=== PATIENT | male | born 1950 | race Caucasian/White ===

== ENCOUNTER 2017-07-09 09:01 | Day surgery (SDC) | payer MEDICARE, OTHER ==
[~2017-07-09] VITALS: Ht 182.9 cm; Wt 109.3 kg
[~2017-07-09 09:01] MED LIST: ASPI325 PO; CYCL10 PO; IBUP600 PO; IBUP800 PO; MECL12.5 PO; Percocet 5-3251 EACH PO; TAMS.4ER PO; Tylenol325 MG PO; Ultram50 MG PO
[2017-07-10 04:09] LABS: BASOPHILS ABSOLUTE AUTO 0.02 K/mm3 (0.00-0.23); BASOPHILS PERCENT AUTO 0 % (0-2); EOSINOPHILS ABSOLUTE AUTO 0.02 K/mm3 (0.00-0.68); EOSINOPHILS PERCENT AUTO 0 % (0-6); Hematocrit 33.5 % (37.0-53.0); Hemoglobin 11.3 g/dL (13.5-17.5); IMMATURE GRAN ABSOLUTE AUTO 0.05 K/mm3 (0.00-0.10); IMMATURE GRAN PERCENT AUTO 1 % (0-1); LYMPHOCYTES ABSOLUTE AUTO 1.02 K/mm3 (0.84-5.20); LYMPHOCYTES PERCENT AUTO 11 % (21-46); MONOCYTES ABSOLUTE AUTO 0.86 K/mm3 (0.16-1.47); MONOCYTES PERCENT AUTO 10 % (4-13); Mean Corpuscular HGB 30.3 pg (26.0-34.0); Mean Corpuscular HGB Conc 33.7 g/dL (31.5-36.5); Mean Corpuscular Volume 90 fL (80-100); NEUTROPHILS ABSOLUTE AUTO 7.09 K/mm3 (1.96-9.15); NEUTROPHILS PERCENT AUTO 78 % (41-73); Platelet Count 147 K/mm3 (150-400); RDW Coefficient Variation 13.2 % (11.7-14.2); RDW Standard Deviation 43.3 fL (35.1-46.3); Red Blood Cell Count 3.73 M/mm3 (4.30-5.90); White Blood Cell Count 9.06 K/mm3 (4.00-11.30)
[2017-07-10 04:28] LABS: Anion Gap 7 mmol/L (6-16); Blood Urea Nitrogen 20 mg/dL (8-24); Bun/Creatinine Ratio 20.7 (12.0-20.0); CO2, Blood 26 mmol/L (21-32); Calcium, Blood 7.8 mg/dL (8.5-10.1); Chloride, Blood 104 mmol/L (98-108); Creatinine, Blood 0.97 mg/dL (0.60-1.20); Glomerular Filtration Rate >60 (60-); Glucose, Blood 135 mg/dL (70-99); Potassium, Blood 4.2 mmol/L (3.5-5.5); Sodium, Blood 137 mmol/L (136-145)
[2017-07-10] MEDS ORDERED: OXYC5 PO (16:34)
[2017-07-10] MEDS ORDERED: DOCU100 PO (16:35)
[2017-07-10] MEDS ORDERED: ASPI325 PO (16:36)
== END 2017-07-10 16:45 | disposition home or self-care (01) ==
LOC: SURS 09:01 → PRE IP 09:01 → ORSCMMR 09:01 → EDSTATUS 11:00 → PRE IP 11:00 → SURS 14:43 → ORSCMMR 07-10 16:45 → SURS 07-10 16:45
PROVIDERS: Orthopaedic Surgery
PROC: 0SRC0J9 Replacement of Right Knee Joint with Synthetic Substitute, Cemented, Open Approach (ICD-10-PCS; principal; 2017-07-09 11:00)
DX: M17.11 Unilateral primary osteoarthritis, right knee (principal); Z01.812 Encounter for preprocedural laboratory examination; Z01.818 Encounter for other preprocedural examination; Z23 Encounter for immunization
CPT/HCPCS: 36415; 73560-RT; 80048; 85025; 86850; 86900; 86901; 88300; 97110; 97116; 97162; 97530; C1713; C1776; G0008; G8978; G8979; J0171; J0690; J0735; J1100; J1170; J1885; J2405; J2710; J2765; J2795; J3010; J7120; Q2038

== ENCOUNTER → 2018-05-22 | Outpatient (CLI) | payer MEDICARE, OTHER ==
[~2018-05-22] MED LIST changes: +DOCU100 PO; +OXYC5 PO
== END ==
LOC: PLD 10:11 → LAB SHORT 10:11
DX: L57.0 Actinic keratosis (principal); L91.0 Hypertrophic scar
CPT/HCPCS: 88305

== ENCOUNTER 2018-07-09 06:44 | Day surgery (SDC) | payer MEDICARE, OTHER ==
[~2018-07-09] VITALS: Ht 182.9 cm; Wt 109.7 kg
[~2018-07-09 06:44] MED LIST changes: +Aspirin EC81 MG PO
== END 2018-07-09 09:21 | disposition home or self-care (01) ==
LOC: ORSCSDS 06:44
PROVIDERS: Internal Medicine Gastroenterology
PROC: 0DBK8ZX Excision of Ascending Colon, Via Natural or Artificial Opening Endoscopic, Diagnostic (ICD-10-PCS; principal; 2018-07-09 08:00)
PROC: 0DBM8ZX Excision of Descending Colon, Via Natural or Artificial Opening Endoscopic, Diagnostic (ICD-10-PCS; principal; 2018-07-09 08:00)
PROC: 0DBL8ZX Excision of Transverse Colon, Via Natural or Artificial Opening Endoscopic, Diagnostic (ICD-10-PCS; principal; 2018-07-09 08:00)
DX: Z12.11 Encounter for screening for malignant neoplasm of colon (principal); D12.2 Benign neoplasm of ascending colon; D12.3 Benign neoplasm of transverse colon; D12.4 Benign neoplasm of descending colon; K57.30 Diverticulosis of large intestine without perforation or abscess without bleeding; Z87.891 Personal history of nicotine dependence; E78.5 Hyperlipidemia, unspecified; L93.1 Subacute cutaneous lupus erythematosus; Z79.899 Other long term (current) drug therapy
CPT/HCPCS: 88305; J0330; J1980; J2405; J7120

== ENCOUNTER 2019-07-06 09:08 | Day surgery (SDC) | payer MEDICARE, OTHER ==
[~2019-07-06] VITALS: Ht 182.9 cm; Wt 113.2 kg
--- NOTE | 2019-07-06 10:15 | NUR ---
PT ADMITTED TO [facility]. AGREES WITH PLANNED SURGERY. LUNG SOUNDS CLEAR. NOZIN TO NARES BILATERALLY PER ORDER.
--- NOTE | 2019-07-06 11:00 | NUR ---
REPORT GIVEN TO CHRISTIE BERMUDEZ RN.
--- NOTE | 2019-07-06 17:51 | NUR ---
SHIFT SUMMARY PT A&OX4, VSS, RA, S/P L KENN, AQUACEL CDI, PAS'/TEDS/POLAR BENNIE ON. PAIN MANAGED W/5 MG OXY, TYLENOL AND TORADOL. GEORGIE PO, DENIES N&V. AMB SBA W/FWW & GB TO BRP AND HALLWAY. AWAITING POST-OP VOID; PT DENIES NEED TO VOID; IF UNABLE WILL BLADDER SCAN. WILL REPORT TO ONCOMING NOC RN.
--- NOTE | 2019-07-07 04:22 | NUR ---
SHIFT SUMMARY POD 0 S/P LEFT TKA; AQUACEL C/D/I WITH POLAR PACK, CHINEDU'S, AND PAS IN PLACE. REPORTS PAIN MANAGED WITH PO MEDICATION. TOLERATING REGULAR DIET, DENIES ANY N/V. AMB IN HALLWAY X1 AND ROOM T/O SHIFT W/FWW AND GB. VOIDING W/OUT DIFFICULTY. PLAN FOR PT/OT EVALUATION AND HOME TOMORROW. IS CURRENTLY RESTING IN BED WITH CALL LIGHT IN REACH. WILL CONT TO MONITOR AND GIVE REPORT TO ONCOMING RN.
[2019-07-07 06:14] LABS: BASOPHILS ABSOLUTE AUTO 0.02 K/mm3 (0.00-0.23); BASOPHILS PERCENT AUTO 0 % (0-2); EOSINOPHILS ABSOLUTE AUTO 0.02 K/mm3 (0.00-0.68); EOSINOPHILS PERCENT AUTO 0 % (0-6); Hematocrit 34.6 % (37.0-53.0); Hemoglobin 11.6 g/dL (13.5-17.5); IMMATURE GRAN ABSOLUTE AUTO 0.04 K/mm3 (0.00-0.10); IMMATURE GRAN PERCENT AUTO 0 % (0-1); LYMPHOCYTES ABSOLUTE AUTO 1.08 K/mm3 (0.84-5.20); LYMPHOCYTES PERCENT AUTO 10 % (21-46); MONOCYTES ABSOLUTE AUTO 0.66 K/mm3 (0.16-1.47); MONOCYTES PERCENT AUTO 6 % (4-13); Mean Corpuscular HGB 30.7 pg (26.0-34.0); Mean Corpuscular HGB Conc 33.5 g/dL (31.5-36.5); Mean Corpuscular Volume 92 fL (80-100); Mean Platelet Volume 9.4 fL (9.1-12.4); NEUTROPHILS ABSOLUTE AUTO 9.35 K/mm3 (1.96-9.15); NEUTROPHILS PERCENT AUTO 84 % (41-73); Platelet Count 178 K/mm3 (150-400); RDW Coefficient Variation 13.4 % (11.7-14.2); RDW Standard Deviation 45.1 fL (35.1-46.3); Red Blood Cell Count 3.78 M/mm3 (4.30-5.90); White Blood Cell Count 11.17 K/mm3 (4.00-11.30)
[2019-07-07 06:36] LABS: Anion Gap 7 mmol/L (6-16); Blood Urea Nitrogen 22 mg/dL (8-24); Bun/Creatinine Ratio 18.5 (12.0-20.0); CO2, Blood 25 mmol/L (21-32); Calcium, Blood 8.1 mg/dL (8.5-10.1); Chloride, Blood 105 mmol/L (98-108); Creatinine, Blood 1.19 mg/dL (0.60-1.20); Glomerular Filtration Rate >60 (60-); Glucose, Blood 130 mg/dL (70-99); Sodium, Blood 137 mmol/L (136-145)
[2019-07-07] MEDS ORDERED: ASPIR 8181 M1 PO (08:47)
[2019-07-07] MEDS ORDERED: ACET500 PO (08:48)
[2019-07-07] MEDS ORDERED: ROXICODONE5 MG PO (08:48)
--- NOTE | 2019-07-07 11:56 | NUR ---
DISCHARGE SUMMARY PT A&OX4, VSS, LEFT FLOOR VIA WC WITH CAKE WRAPPER, TO GO HOME WITH , WITH ALL PERSONAL POSSESSIONS INCLUDING DC PACKET WITH 1 NARC SCRIPT AND 2 AQUACEL DRESSINGS. DC INSTRUCTIONS PROVIDED. PT AND REP UNDERSTANDING DC INSTRUCTIONS INCLUDING ASA BID, PAIN MANAGEMENT, DRESSING CHANGES, SHORT FREQ AMBULATION W/FWW, PHYSICAL THERAPY OUTPT, WHEN TO CALL THE SURGEON. IV DC'D.
== END 2019-07-07 10:35 | disposition home or self-care (01) ==
LOC: ORSCMMR 09:08 → ORD 11:15 → ORSCMMR 11:15 → SURS 15:13 → ORSCMMR 07-07 10:35
PROVIDERS: Orthopaedic Surgery
PROC: 0SRD0J9 Replacement of Left Knee Joint with Synthetic Substitute, Cemented, Open Approach (ICD-10-PCS; principal; 2019-07-06 11:15)
DX: M17.12 Unilateral primary osteoarthritis, left knee (principal); Z79.82 Long term (current) use of aspirin; E66.9 Obesity, unspecified; Z68.33 Body mass index [BMI] 33.0-33.9, adult
CPT/HCPCS: 36415; 73560-LT; 80048; 83735; 85025; 88300; 97110; 97116; 97162; C1713; C1776; J0171; J0690; J0735; J1100; J1885; J2250; J2370; J2405; J2704; J2795; J3010; J7120

== ENCOUNTER 2019-10-13 11:22 | Day surgery (SDC) | payer MEDICARE, OTHER ==
[~2019-10-13] VITALS: Ht 182.9 cm; Wt 121.1 kg
[~2019-10-13 11:22] MED LIST changes: +ACET500 PO; +ASPIR 8181 M1 PO; +ROXICODONE5 MG PO
--- NOTE | 2019-10-13 17:52 | NUR ---
10/13/19 [address] [place] PER DR. PEDRO & DR. ROSENTHAL THAT PT. BE CHANGED FROM MAC TO NURSE SEDATION.
== END 2019-10-13 13:55 | disposition home or self-care (01) ==
LOC: ORSCSDS 11:22
PROVIDERS: Internal Medicine Gastroenterology
PROC: 0DBK8ZX Excision of Ascending Colon, Via Natural or Artificial Opening Endoscopic, Diagnostic (ICD-10-PCS; principal; 2019-10-13 13:00)
PROC: 0DBL8ZX Excision of Transverse Colon, Via Natural or Artificial Opening Endoscopic, Diagnostic (ICD-10-PCS; principal; 2019-10-13 13:00)
DX: Z12.11 Encounter for screening for malignant neoplasm of colon (principal); Z86.010 Personal history of colon polyps; D12.3 Benign neoplasm of transverse colon; D12.2 Benign neoplasm of ascending colon; E78.5 Hyperlipidemia, unspecified; Z87.891 Personal history of nicotine dependence; Z79.82 Long term (current) use of aspirin; Z79.899 Other long term (current) drug therapy
CPT/HCPCS: 88305; J2704; J7120

== ENCOUNTER → 2022-02-14 | Outpatient (CLI) | payer MEDICARE, OTHER ==
[~2022-02-14] MED LIST changes: +ATORVASTATIN CA20 MG PO; +IBUP400 PO; +PROPRANOLOL HCL80 MG PO; +TAMSULOSIN HCL0.4 M1 PO; +TOPI50 PO
== END | disposition home or self-care (01) ==
LOC: LAB 11:08 → LAB SHORT 11:08
DX: L08.9 Local infection of the skin and subcutaneous tissue, unspecified (principal)
CPT/HCPCS: 87070; 87075; 87076; 87205

== ENCOUNTER 2023-11-04 07:02 | Day surgery (SDC) | payer MEDICARE, OTHER ==
[~2023-11-04] VITALS: Ht 182.9 cm; Wt 112.0 kg
[~2023-11-04 07:02] MED LIST changes: +Lactated Ringer's 1,000 ML IV SCH
[2023-11-04 08:47] VITALS: BP 141/72
--- NOTE | 2023-11-04 09:02 | NUR ---
Ambulatory in Day Surgery. History, Chart, Medications and Allergies reviewed before start of procedure. Lungs clear T/O to Auscultation. Patient confirms NPO status and agrees with scheduled surgery. Patient States Post-Procedure ride home has been arranged.
[2023-11-04] MEDS ORDERED: Midazolam HCl 1MG / ML 2ML Vial ONE (09:23)
[2023-11-04] MEDS ORDERED: FentaNYL Citrate 50 MCG/ML 2 ML Injection ONE (09:23)
[2023-11-04] MEDS ORDERED: propofoL 20 ML IV ONE (09:24)
--- NOTE | 2023-11-04 09:30 | NUR ---
11/04/23 0930 Arnold Lopez History, Chart, Medications and Allergies reviewed before start of procedure. MONITOR INTACT WITH CONTINUOUS PULSE OXIMETRY, CONTINUOUS END TITAL CO2, AND INTERMITTENT BLOOD PRESSURE. 3-LEAD EKG REVIEWED WITH PHYSICIAN PRIOR TO START OF PROCEDURE. O2 VIA POM INTACT THROUGHOUT SEDATION/PROCEDURE. GLASSES REMOVED FROM PT AND PLACED IN BAY ON TOP OF DRAWERS BEFORE COMING TO ENDO ROOM.
[2023-11-04 09:59] VITALS: BP 120/71
[2023-11-04 10:15] VITALS: BP 119/72
--- NOTE | 2023-11-04 10:23 | NUR ---
DISCHARGE NOTE PT A&OX4, BREATHING RA, NO COMPLAINTS, ABDOMEN SOFT AND NON TENDER, AT BEDISDE. PT WEARING GLASSES. TOLERATING PO FLUIDS. Patient up to Ambulate independently. Gait steady.PT DRESSED INDEPENDENTLY. Discharge instructions reviewed with patient. Patient verbalizes understanding. Copy given to patient to take home. Discharged via wheelchair to private car for ride home.
== END 2023-11-04 10:27 | disposition home or self-care (01) ==
LOC: ORSCMMR 07:02 → ORD 10:00 → ORSCMMR 10:27 → ORD 11-11 08:00
DX: Z12.11 Encounter for screening for malignant neoplasm of colon (principal); D12.0 Benign neoplasm of cecum; D12.2 Benign neoplasm of ascending colon; K57.30 Diverticulosis of large intestine without perforation or abscess without bleeding; Z86.010 Personal history of colon polyps; G47.33 Obstructive sleep apnea (adult) (pediatric); I10 Essential (primary) hypertension; N40.0 Benign prostatic hyperplasia without lower urinary tract symptoms; E78.00 Pure hypercholesterolemia, unspecified; Z79.899 Other long term (current) drug therapy; Z87.891 Personal history of nicotine dependence
CPT/HCPCS: 88305; J2250; J2704; J3010; J7120

== ENCOUNTER → 2024-02-19 | Outpatient (CLI) | payer MEDICARE, OTHER ==
[~2024-02-19] MED LIST changes: -Lactated Ringer's 1,000 ML IV SCH
== END ==
LOC: LAB SHORT 15:34 → LAB 15:34
DX: M72.0 Palmar fascial fibromatosis [Dupuytren] (principal)
CPT/HCPCS: 88304

== ENCOUNTER → 2024-04-06 | Outpatient (CLI) | payer MEDICARE, OTHER ==
[2024-04-06 19:21] LABS: Very Low Density Lipoprot Chol 28 mg/dL (6-32)
[2024-04-06 19:22] LABS: CHOL/HDL RATIO 3.3; Cholesterol 127 mg/dL (50-200); HDL Cholesterol 38 mg/dL (>39); LDL/HDL RATIO 1.6; Low Density Lipoprotein Chol 61 mg/dL (0-110); Triglycerides 141 mg/dL (30-160)
== END | disposition home or self-care (01) ==
LOC: LAB 15:47 → LAB SHORT 15:47
DX: Z00.00 Encounter for general adult medical examination without abnormal findings (principal); Z13.6 Encounter for screening for cardiovascular disorders; R73.9 Hyperglycemia, unspecified
CPT/HCPCS: 80061

== ENCOUNTER → 2025-04-15 | Outpatient (CLI) | payer MEDICARE, OTHER | LOC: LAB 14:09 → LAB SHORT 14:09 | DX: E11.65 Type 2 diabetes mellitus with hyperglycemia (principal) | CPT/HCPCS: 82043 ==